=== PATIENT | male | born 1995 | race Caucasian/White ===

== ENCOUNTER 2024-01-12 20:15 | Emergency (ER) | payer OTHER, SELFPAY ==
[2024-01-12 20:20] VITALS: BP 137/72; PULSE 70; RESP 16; TEMP 36.2; O2SAT 97; BMI 41.1
--- NOTE | 2024-01-12 21:42 | ED.GENADULT ---
HPI - General Adult General Chief complaint: Ear Problems Stated complaint: right ear pain Time Seen by Provider: 01/12/24 21:42 History of Present Illness ED Provider: Deysi ATWOOD narrative: The patient is a generally healthy 28-year-old comes to the emergency room for evaluation of right ear problems. He is here with his mother. His mother says that he had a lot of cases of swimmer's ear as a child. The patient says that he has had discomfort in the right ear for about 3 or 4 days. It has been uncomfortable to use his ear buds. He has had no decreased hearing. No fever, sweats, chills. No sore throat. No significant drainage from the ear. Related Data Previous Rx's ?Medication ?Instructions ?Recorded ofloxacin 0.3 % ear drops 10 drp otic (ears) DAILY 7 days #5 01/12/24 mL Allergies Allergy/AdvReac Type Severity Reaction Status Date / Time No Known Allergies Allergy Verified 01/12/24 20:21 Review of Systems Review of Systems: Yes all other systems are reviewed and are negative [facility] Social History Social History (System 05/07/23 @ 16:25 by Linda Mcgee) Advance Directives: No Advance Directives Information Provided: No Do you have a plan to hurt others: No Plan Physical Exam ED Vital Signs: Vital Signs - 24 hr 01/12/24 20:20 Temperature 97.1 F Pulse Rate 70 Respiratory Rate 16 Blood Pressure 137/72 Pulse Oximetry 97 Oxygen Delivery Method Room Air BMI result Body Mass Index 41.1 Const Other: The patient is awake and alert. He does not appear in obvious distress. HENMT Other: The appearance of the face is unremarkable. No external swelling. The external ears are unremarkable to inspection. On the right side he does not have any significant pain with manipulation of the tragus or the pinna generally but he does have a little bit of tenderness when I insert the speculum of the otoscope. There may be some minimal edema of the fregoso of the ear canal but no gross swelling. The tympanic membrane looks unremarkable. The left ear shows an unremarkable external left ear, external auditory meatus, and tympanic membrane. Pharynx is normal. Eyes Other: Pupils are round equal, conjunctivae are clear, extraocular movements intact Neck Other: Neck is supple, no cervical adenopathy Resp Effort & Inspection: normal respiratory effort Auscultation: clear to auscultation bilaterally Cardio Rate: regular rate Rhythm: regular rhythm Heart sounds: S1 normal heart sound present and S2 normal heart sound present Skin Other: Skin is dry and unremarkable Neuro Other: The patient is awake and alert and entirely nontoxic. Cranial nerves are grossly intact. He moves his extremities normally and unremarkably. Medical Decision Making Medical Decision Making MDM Narrative: The patient is a 28-year-old who is generally healthy who presents with complaints of right ear discomfort. His physical exam is quite unremarkable. I do not think there are any findings of otitis media. He has very soft findings of a possible otitis externa. In fact he says that his symptoms are less bad today than they were yesterday. Although this is a process which may be resolving on its own he would prefer to be on antibiotic drops. I have sent a prescription for ofloxacin drops to his pharmacy. He should return if worse. He is encouraged to get a PCP Discharge Plan Discharge Clinical Impression: Right otitis externa Patient Disposition: Home, Self-Care Instructions: Otitis Externa (ED) Additional Instructions: At the moment your ear does not appear to look very bad. I suspect you have a mild case of otitis externa. This is an infection that is sometimes called swimmer's ear. I have sent a prescription for antibiotics drops to the [facility] pharmacy. I would recommend picking up this prescription 1st thing in the morning and starting the antibiotic drops. It is 10 drops in the ear daily for 7 days. If you wish you may device this into 2 doses and do 5 drops in the morning and 5 drops in the evening. I would also recommend avoiding use of ear buds until you are feeling completely better. I would recommend trying to get a regular primary care doctor. It might be useful to contact your insurance to find a doctor's office that takes your insurance. Return to the emergency room if worse or get checked at an urgent care. Prescriptions: New ofloxacin 0.3 % drops 10 drp otic (ears) DAILY 7 Days Qty: 5 0RF Print Language: Lithuanian
[2024-01-12 21:51] VITALS: BP 138/70; PULSE 72; RESP 19; TEMP 36.6; O2SAT 98
[2024-01-12 22:12] VITALS: BP 138/70; PULSE 72; RESP 19; TEMP 36.6; O2SAT 98
== END 2024-01-12 22:13 | disposition home or self-care (01) ==
PROVIDERS: Emergency Provider Emergency Medicine
DX: H60.91 Unspecified otitis externa, right ear (principal); H92.01 Otalgia, right ear
CPT/HCPCS: 99283; 99284